=== PATIENT | female | born 1975 | race American Indian/Alaskan Native ===

== ENCOUNTER 2019-03-06 18:05 | Emergency (ER) | payer OTHER ==
--- NOTE | 2019-03-06 19:02 | Event Note ---
ED Screening Note Date of service: 03/06/19 Time: 18:58 ED Screening Note: 43 y/o female comes in for left ankle and foot injury. This initial assessment/diagnostic orders/clinical plan/treatment(s) is/are subject to change based on patients health status, clinical progression and re-assessment by fellow clinical providers in the ED. Further treatment and workup at subsequent clinical providers discretion. Patient/guardian urged not to elope from the ED as their condition may be serious if not clinically assessed and managed. Initial orders include:
--- NOTE | 2019-03-06 19:58 | XRay Report ---
Left foot 3 views INDICATION: Left foot pain following injury IMPRESSION: No fracture or subluxation of the left foot is identified. Left ankle 3 views INDICATION: Left ankle pain following injury IMPRESSION: No fracture or subluxation of the left ankle is identified. Signer Name: Yusuf Perez MD Signed: 03/06/2019 7:54 PM Workstation Name: [id number]
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
[2019-03-07] MEDS ORDERED: NAPROSYN PO ONE (00:41)
[2019-03-07 01:34] VITALS: BP 122/79
== END 2019-03-07 01:34 | disposition home or self-care (01) ==
LOC: ED 18:05
DX: M25.572 Pain in left ankle and joints of left foot (principal); M79.672 Pain in left foot; E66.9 Obesity, unspecified; Z98.51 Tubal ligation status; W06.XXXA Fall from bed, initial encounter; Y93.89 Activity, other specified; Y92.89 Other specified places as the place of occurrence of the external cause; Y99.8 Other external cause status